=== PATIENT | male | born 1985 | race Two or more races ===

== ENCOUNTER 2021-04-09 20:03 | Emergency (ER) | payer MEDICAID, MEDICARE ==
[~2021-04-09] VITALS: Ht 172.7 cm; Wt 81.6 kg
[2021-04-09 20:04] VITALS: BP 168/97
[2021-04-09 21:47] LABS: Urine Bacteria NONE SEEN /hpf (None Seen); Urine Blood Negative /uL (Negative); Urine Hyaline Cast FEW /lpf (0 - 2); Urine Specific Gravity 1.022 (1.001-1.035); Urine WBC <1 /hpf (0 - 3)
[2021-04-09] MEDS ORDERED: SODIUM CHLORIDE 0.9% 2,000 ML IV ONE (23:00)
[2021-04-09] MEDS ORDERED: DIPHENOXYLATE W/ATROPINE 2.5 MG TAB PO ONE (23:00)
== END 2021-04-10 00:33 | disposition left against medical advice (07) ==
LOC: ER 20:04
DX: R19.7 Diarrhea, unspecified (principal); R10.32 Left lower quadrant pain
CPT/HCPCS: 81001

== ENCOUNTER 2021-09-28 06:31 | Emergency (ER) | payer MEDICAID, OTHER ==
[~2021-09-28] VITALS: Ht 167.6 cm; Wt 72.6 kg
[2021-09-28 06:57] VITALS: BP 149/84
[2021-09-28] MEDS ORDERED: cefTRIAXone SOD 1,000 MG VL IM ONE (07:00)
[2021-09-28] MEDS ORDERED: AZIT500T66 PO (07:00)
[2021-09-28] MEDS ORDERED: methylPREDNISolone SOD SUCC 125 MG/2 ML VL IM ONE (07:00)
[2021-09-28] MEDS ORDERED: LIDO2SOL23 MT (07:00)
[2021-09-28] MEDS ORDERED: LIDOCAINE 1% HCL (LOCAL ANESTH.) INJ 20ML MDV ID ONE (07:15)
== END 2021-09-28 07:29 | disposition home or self-care (01) ==
LOC: ER 06:31
DX: J03.90 Acute tonsillitis, unspecified (principal)
CPT/HCPCS: 96372; 99284; J0696; J2001; J2930

== ENCOUNTER 2022-12-14 06:26 | Emergency (ER) | payer MEDICAID ==
[~2022-12-14] VITALS: Ht 172.7 cm; Wt 78.8 kg
[~2022-12-14 06:26] MED LIST: AZIT500T66 PO; LIDO2SOL26 MT
[2022-12-14 07:17] VITALS: BP 141/94; PULSE 63; RESP 16; TEMP 97.8; O2SAT 95
[2022-12-14] MEDS ORDERED: METH4PAK PO (07:44)
[2022-12-14] MEDS ORDERED: TRIA0.1O TOP (07:44)
== END 2022-12-14 07:55 | disposition home or self-care (01) ==
LOC: ER 06:26
DX: L20.9 Atopic dermatitis, unspecified (principal); Z79.899 Other long term (current) drug therapy

== ENCOUNTER 2022-12-21 06:51 | Emergency (ER) | payer MEDICAID ==
[~2022-12-21] VITALS: Ht 172.7 cm; Wt 78.8 kg
[~2022-12-21 06:51] MED LIST changes: +METH4PAK PO; +TRIA0.1O TOP
[2022-12-21 07:10] VITALS: PULSE 65
[2022-12-21] MEDS ORDERED: EPINEPHrine HCL 1 MG/1 ML AMP SC ONE (07:45)
[2022-12-21] MEDS ORDERED: methylPREDNISolone SOD SUCC 40 MG/ML VL IM ONE (07:45)
[2022-12-21 07:50] VITALS: O2SAT 98
[2022-12-21] MEDS ORDERED: HYDR50CA PO (08:01)
[2022-12-21] MEDS ORDERED: PRED20TA2 PO (08:01)
[2022-12-21 08:13] VITALS: BP 127/80; RESP 18; O2SAT 95
== END 2022-12-21 08:14 | disposition home or self-care (01) ==
LOC: ER 06:51
DX: T78.40XA Allergy, unspecified, initial encounter (principal); X58.XXXA Exposure to other specified factors, initial encounter
CPT/HCPCS: 96372; 99284; J0171; J2920

== ENCOUNTER 2023-03-09 07:09 | Emergency (ER) | payer MEDICAID ==
[~2023-03-09] VITALS: Ht 172.7 cm; Wt 83.9 kg
[~2023-03-09 07:09] MED LIST changes: +HYDR50CA PO; +PRED20TA2 PO; +PROM1SOL4 PO
[2023-03-09 08:26] VITALS: BP 112/66; PULSE 77; RESP 16; TEMP 98.5; O2SAT 97
[2023-03-09] MEDS ORDERED: DEXT60TA4 PO (09:05)
== END 2023-03-09 09:23 | disposition home or self-care (01) ==
LOC: ER 07:09 → MERGE 07:09 → ER 09:23
DX: N39.0 Urinary tract infection, site not specified (principal); J02.9 Acute pharyngitis, unspecified

== ENCOUNTER 2025-01-08 06:27 | Emergency (ER) | payer MEDICAID ==
[~2025-01-08] VITALS: Ht 167.6 cm; Wt 80.4 kg
[~2025-01-08 06:27] MED LIST changes: +DEXT60TA4 PO
--- NOTE | 2025-01-08 07:36 | ED.PDOC ---
Back pain HPI HPI Comments This is a 39 year old male presenting to the ED with chief complaint of left lower back pain. Patient reports that he suddenly began to experience left lower back pain that worsens with movement and stretching. Patient relays that he has had similar pain in the past about a year ago, but it self resolved with Tylenol. Patient states at a recent PCP visit, he was told he had sciatica. Patient denies any numbness, weakness, tingling, fall, or injury at this time. Chief Complaint: Flank Pain Time Seen by MD: 07:34 Primary Care Provider: VALARIE Reviewed Notes: Nurses Notes, Medications, Allergies Allergies: Coded Allergies: NO KNOWN ALLERGIES (Unverified , 09/28/21) Home Meds Active Scripts Dextromethorphan-Guaifenesin (Mucinex Dm Maximum Streng) 1 Tab Tab, 1 TAB PO BID PRN for 10 Days, #20 TAB 0 Refills Prov:MITCH VYAS NP 03/09/23 Promethazine-Dm (Promethazine Dm 6.25-15 mg/5Ml) 1 [place], 5 ML PO TID, #150 ML Prov:CAMI CANO 01/17/23 Azithromycin (Azithromycin) 500 Mg Tab, 1 TAB PO DAILY, #5 TAB Prov:CAMI CANO 01/17/23 Prednisone (Prednisone) 20 Mg Tab, 60 MG PO DAILY, #21 MG Prov:CAMI CANO 12/21/22 Hydroxyzine Pamoate (Vistaril) 50 Mg Cap, 1 CAP PO BID, #30 CAP Prov:CAMI CANO 12/21/22 Methylprednisolone (Medrol Dosepak) 4 Mg Zohaib, 4 MG PO UD, #21 TAB UAD Prov:CAMI CANO 12/14/22 Triamcinolone Acetonide (Triamcinolone Acetonide) 0.1 % Oin, 1 APPLIC TOP BID, #60 GRAMS Prov:CAMI CANO 12/14/22 Lidocaine HCl (Mouth-Throat) (Lidocaine HCl Viscous) 2 % [place], 2 % MT TID, #100 ML Prov:CAMI CANO 09/28/21 Azithromycin (Azithromycin) 500 Mg Tab, 500 MG PO DAILY for 5 Days, #5 TAB Prov:CAMI CANO 09/28/21 Information Source: Patient Mode of Arrival: Ambulatory Timing: Days Duration: Since onset Location of Back pain: (L) Lower back Severity: Moderate Prehospital treatment: None Quality: Sharp Onset: Spontaneous History of: None Modifying Factors: Nothing Past Medical History Past Medical History (Other): Sciatica Surgical History: Denies all surgeries Family History Family History: Reviewed,noncontributory to illness Social History Smoker: Non-Smoker Alcohol: Denies ETOH Use Drugs: Denies Drug Use Lives In: Home Constitutional: denies: chills, diaphoresis, fatigue, fever, malaise, sweats, weakness, others EENTM: denies: blurred vision, double vision, ear bleeding, ear discharge, ear drainage, ear pain, ear ringing, eye pain, eye redness, hearing loss, mouth pain, mouth swelling, nasal discharge, nose bleeding, nose congestion, nose pain, photophobia, tearing, throat pain, throat swelling, voice changes, others Respiratory: denies: cough, hemoptysis, orthopnea, SOB at rest, shortness of breath, SOB with excertion, stridor, wheezing, others Cardiovascular: denies: chest pain, dizzy spells, diaphoresis, Dyspnea on exertion, edema, irregular heart beat, left arm pain, lightheadedness, palpitations, PND, syncope, others Gastrointestinal: denies: abdomen distended, abdominal pain, blood streaked bowels, constipated, diarrhea, dysphagia, difficulty swallowing, hematemesis, melena, nausea, poor appetite, poor fluid intake, rectal bleeding, rectal pain, vomiting, others Genitourinary: denies: burning, dysuria, flank pain, frequency, hematuria, incontinence, penile discharge, penile sore, pain, testicle pain, testicle swelling, urgency, others Neurological: denies: dizziness, fainting, headache, left sided numbness, left sided weakness, numbness, paresthesia, pre-existing deficit, right sided numbness, right sided weakness, seizure, speech problems, tingling, tremors, weakness, others Musculoskeletal: reports: back pain; denies: gout, joint pain, joint swelling, muscle pain, muscle stiffness, neck pain, others Integumetry: denies: bruises, change in color, change in hair/nails, dryness, laceration, lesions, lumps, rash, wounds, others Allergic/Immunocompromised: denies: Difficulty Healing, Frequent Infections, Hives, Itching, others Hematologic/Lymphatic: denies: anemia, blood clots, easy bleeding, easy bruising, swollen glands, others Endocrine: denies: excessive hunger, excessive sweating, excessive thirst, excessive urination, flushing, intolerance to cold, intolerance to heat, unexplained weight gain, unexplained weight loss, others Psychiatric: denies: anxiety, bipolar disorder, depression, hopeless, panic disorder, schizophrenia, sleepless, suicidal, others All Other Systems: Reviewed and Negative Physical Exam General Appearance: Moderate Distress, Normal HEENT: Normal ENT Inspection, PERRL/EOMI, Pharynx Normal, TMs Normal Neck: Full Range of Motion, Non-Tender, Normal, Normal Inspection Respiratory: Chest Non-Tender, Lungs Clear, No Accessory Muscle Use, No Respiratory Distress, Normal Breath Sounds Cardiovascular: No Edema, No JVD, No Murmur, No Gallop, Normal Peripheral Pulses, Regular Rate/Rhythm Breast Exam: Deferred Gastrointestinal: No Organomegaly, Non Tender, No Pulsatile Mass, Normal Bowel Sounds, Soft Genitalia: Deferred Pelvic: Deferred Rectal: Deferred Extremities: No calf tenderness, Normal capillary refill, Normal inspection, Normal range of motion, Non-tender, No pedal edema Musculoskeletal : Location: Left Extremity Location: Back Apperance: Limited ROM, Tenderness: Mild, Tenderness: Moderate, Other (With a straight leg irrigation elevation at 45 very painful) Neurologic: Alert, pediatrician active practice II-XII nml as Tested, No Motor Deficits, Normal Affect, Normal Mood, No Sensory Deficits Cerebellar Function: Normal Reflexes: Normal Skin: Dry, Normal Color, Warm Peripheral Pulses: 1+ carotid (R), 1+ carotid (L) Lymphatic: No Adenopathy Was a procedure done? Was a procedure done?: No Back Pain Differential Dx Differential Diagnosis: Musculoskeletal Pain X-Ray, Labs, Meds, VS Vital Signs Date Time Temp Pulse Resp B/P (MAP) Pulse Ox O2 Delivery O2 Flow Rate FiO2 01/08/25 07:46 97.6 60 18 116/82 (93) 97 97.6 01/08/25 06:29 97.7 64 16 127/87 97 97.7 Time of 1ST Reevaluation: 07:45 Reevaluation 1ST: Unchanged Time of 2ND Reevaluation: 07:49 Reevaluation 2ND: Improved Consultation: PCP, Surgery Patient Education/Counseling: Diagnosis, Treatment, Prognosis, Need For Follow Up Family Education/Counseling: Diagnosis, Treatment, Prognosis, Need For Follow Up, No Family Present SEPSIS Sepsis Screen Date sepsis recognized/suspect: Jan 08, 2025 Time Sepsis recognized/suspect: 0634 Recent Procedure: No On Antibiotic Therapy: No Respiratory Rate >20: No Heart Rate >90: No Temp<36 C (96.8 F) or >38.3 C: No SBP <90 or MAP <65 mmHG: No New Acute Mental Status Change: No Is the patient on CPAP, BIPAP,: No Vital Signs Date Time Temp Pulse Resp B/P (MAP) Pulse Ox O2 Delivery O2 Flow Rate FiO2 01/08/25 07:46 97.6 60 18 116/82 (93) 97 97.6 01/08/25 06:29 97.7 64 16 127/87 97 97.7 Departure 1 Departure Time of Disposition: 07:49 Impression: Primary Impression: Osteoarthritis of spine with radiculopathy, lumbar region Disposition: 01 HOME / SELF CARE / HOMELESS Condition: Fair Additional Instructions: Heat and follow up with your PCP e-Prescriptions Hydrocodone-Acetaminophen (Hydrocodone Bitartrate/AC 5-325 mg) 1 Tab Tab 1 TAB PO BID for 5 Days, #10 TAB Prov: JOSE GIBBS MD 01/08/25 Cyclobenzaprine HCl (Cyclobenzaprine Hydrochlo) 10 Mg Tab 10 MG PO TID for 10 Days, #30 TAB Prov: JOSE GIBBS MD 01/08/25 Dexamethasone (Decadron) 4 Mg Tb 4 MG PO BID for 5 Days, #10 TAB Prov: JOSE GIBBS MD 01/08/25 Discharged With: Self Critical Care Note Critical Care Time?: No Stability Stability form required: No Heart Score Heart Score: Heart Score Response (Comments) Value History N/A 0 EKG N/A 0 Age <45 0 Risk Factors No known risk factors 0 Troponin N/A 0 Total 0 I personally scribed for JOSE GIBBS MD ([email or web address]) on 01/08/25 at 07:36. Electronically submitted by Alejandro Trent ([email or web address]). JOSE GIBBS MD Jan 08, 2025 07:36
[2025-01-08 07:46] VITALS: BP 116/82; PULSE 60; RESP 18; TEMP 97.6; O2SAT 97
[2025-01-08] MEDS: KETOROLAC TROMETH 60MG/2ML VIAL IM ONE (07:49)
[2025-01-08] MEDS ORDERED: DEX4T PO (07:53)
[2025-01-08] MEDS ORDERED: HYDR-4902 PO (07:53)
[2025-01-08] MEDS ORDERED: CYCL-611 PO (07:53)
== END 2025-01-08 08:21 | disposition home or self-care (01) ==
LOC: ER 06:27
DX: M47.26 Other spondylosis with radiculopathy, lumbar region (principal); Z79.899 Other long term (current) drug therapy
CPT/HCPCS: 96372; 99283; J1885

== ENCOUNTER 2025-02-26 05:55 | Emergency (ER) | payer MEDICAID ==
[~2025-02-26] VITALS: Ht 167.6 cm; Wt 82.7 kg
[~2025-02-26 05:55] MED LIST changes: +CYCL-611 PO; +DEX4T PO; +HYDR-4902 PO
--- NOTE | 2025-02-26 06:36 | ED.PDOC ---
Musculoskeletal HPI Comments A 39 YEAR OLD MALE PRESENTS TO THE ED WITH COMPLAINT OF LEFT KNEE PAIN. THE PATIENT SUSTAINED A MECHANICAL FALL YESTERDAY, SLIPPING AND LANDING DIRECTLY ON THE KNEE. ASSOCIATED SYMPTOMS INCLUDE SWELLING. PAIN IS AGGRAVATED BY EXERTION, THOUGH THE PATIENT CAN BEAR SOME WEIGHT. PATIENT DENIES ANY HEAD INJURIES, LIGHTHEADEDNESS, FEVER, CHILLS, SHORTNESS OF BREATH, CHEST PAIN, ABDOMINAL PAIN, NAUSEA, VOMITING, HEADACHE, OR OTHER COMPLAINTS. NO OTHER SYMPTOMS OR MODIFYING FACTORS AT THIS TIME. PATIENT IS ALERT, ORIENTED X 4, AND HAS STEADY GAIT. Chief Complaint: Lower Extremity Time Seen by MD: 06:29 Primary Care Provider: VALARIE Reviewed Notes: Nurses Notes, Medications, Allergies Allergies: Coded Allergies: NO KNOWN ALLERGIES (Unverified , 09/28/21) Home Meds Active Scripts Ibuprofen (Ibuprofen) 800 Mg Tab, 1 TAB PO TID, #30 TAB Prov:CAMI CANO 02/26/25 Hydrocodone-Acetaminophen (Hydrocodone Bitartrate/AC 5-325 mg) 1 Tab Tab, 1 TAB PO BID for 5 Days, #10 TAB Prov:JOSE GIBBS MD 01/08/25 Cyclobenzaprine HCl (Cyclobenzaprine Hydrochlo) 10 Mg Tab, 10 MG PO TID for 10 Days, #30 TAB Prov:JOSE GIBBS MD 01/08/25 Dexamethasone (Decadron) 4 Mg Tb, 4 MG PO BID for 5 Days, #10 TAB Prov:JOSE GIBBS MD 01/08/25 Dextromethorphan-Guaifenesin (Mucinex Dm Maximum Streng) 1 Tab Tab, 1 TAB PO BID PRN for 10 Days, #20 TAB 0 Refills Prov:MITCH VYAS NP 03/09/23 Promethazine-Dm (Promethazine Dm 6.25-15 mg/5Ml) 1 [place], 5 ML PO TID, #150 ML Prov:CAMI CANO 01/17/23 Azithromycin (Azithromycin) 500 Mg Tab, 1 TAB PO DAILY, #5 TAB Prov:CAMI CANO 01/17/23 Prednisone (Prednisone) 20 Mg Tab, 60 MG PO DAILY, #21 MG Prov:CAMI CANO 12/21/22 Hydroxyzine Pamoate (Vistaril) 50 Mg Cap, 1 CAP PO BID, #30 CAP Prov:RACHAELKATYINNA HERNANDEZ 12/21/22 Methylprednisolone (Medrol Dosepak) 4 Mg Zohaib, 4 MG PO UD, #21 TAB UAD Prov:RACHAELCAMI HERNANDEZ 12/14/22 Triamcinolone Acetonide (Triamcinolone Acetonide) 0.1 % Oin, 1 APPLIC TOP BID, #60 GRAMS Prov:CAMI CANO 12/14/22 Lidocaine HCl (Mouth-Throat) (Lidocaine HCl Viscous) 2 % [place], 2 % MT TID, #100 ML Prov:CAMI CANO 09/28/21 Azithromycin (Azithromycin) 500 Mg Tab, 500 MG PO DAILY for 5 Days, #5 TAB Prov:CAMI CANO 09/28/21 Information Source: Patient Mode of Arrival: Ambulatory Location: Left Extremity Location: Knee Timing: Days (1) Prehospital treatment: None Severity: Moderate Able to Move Extremity: Yes Bear Weight: Limited Pain: Moderate Hand Dominance: Right Mechanism: None Circumstances: Fall Onset of Symptoms: After Trauma, During Exercise Symptoms: Swelling, Pain DVT Risk Factors: NONE Last Tetanus: UTD Associated signs and symptoms: Knee pain Past Medical History PAST MEDICAL HISTORY: Denies Surgical History: Denies all surgeries Family History Family History: Reviewed,noncontributory to illness Social History Smoker: Non-Smoker Alcohol: Denies ETOH Use Drugs: Denies Drug Use Lives In: Home Constitutional: denies: chills, diaphoresis, fatigue, fever, malaise, sweats, weakness, others EENTM: denies: blurred vision, double vision, ear bleeding, ear discharge, ear drainage, ear pain, ear ringing, eye pain, eye redness, hearing loss, mouth toy n, mouth swelling, nasal discharge, nose bleeding, nose congestion, nose pain, photophobia, tearing, throat pain, throat swelling, voice changes, others Respiratory: denies: cough, hemoptysis, orthopnea, SOB at rest, shortness of breath, SOB with excertion, stridor, wheezing, others Cardiovascular: denies: chest pain, dizzy spells, diaphoresis, Dyspnea on exertion, edema, irregular heart beat, left arm pain, lightheadedness, palpitations, PND, syncope, others Gastrointestinal: denies: abdomen distended, abdominal pain, blood streaked bowels, constipated, diarrhea, dysphagia, difficulty swallowing, hematemesis, melena, nausea, poor appetite, poor fluid intake, rectal bleeding, rectal pain, vomiting, others Genitourinary: denies: burning, dysuria, flank pain, frequency, hematuria, incontinence, penile discharge, penile sore, pain, testicle pain, testicle swelling, urgency, others Neurological: denies: dizziness, fainting, headache, left sided numbness, left sided weakness, numbness, paresthesia, pre-existing deficit, right sided numbness, right sided weakness, seizure, speech problems, tingling, tremors, weakness, others Musculoskeletal: reports: joint pain, joint swelling, others (LEFT KNEE PAIN ); denies: back pain, gout, muscle pain, muscle stiffness, neck pain Integumetry: denies: bruises, change in color, change in hair/nails, dryness, laceration, lesions, lumps, rash, wounds, others Allergic/Immunocompromised: denies: Difficulty Healing, Frequent Infections, Hives, Itching, others Hematologic/Lymphatic: denies: anemia, blood clots, easy bleeding, easy bruising, swollen glands, others Endocrine: denies: excessive hunger, excessive sweating, excessive thirst, excessive urination, flushing, intolerance to cold, intolerance to heat, un explained weight gain, unexplained weight loss, others Psychiatric: denies: anxiety, bipolar disorder, depression, hopeless, panic disorder, schizophrenia, sleepless, suicidal, others All Other Systems: Reviewed and Negative Physical Exam General Appearance: No Apparent Distress, Normal HEENT: Normal ENT Inspection, PERRL/EOMI, Pharynx Normal, TMs Normal Neck: Full Range of Motion, Non-Tender, Normal, Normal Inspection Respiratory: Chest Non-Tender, Lungs Clear, No Accessory Muscle Use, No R espiratory Distress, Normal Breath Sounds Cardiovascular: No Edema, No JVD, No Murmur, No Gallop, Normal Peripheral Pulses, Regular Rate/Rhythm Breast Exam: Deferred Gastrointestinal: No Organomegaly, Non Tender, No Pulsatile Mass, Normal Bowel Sounds, Soft Genitalia: Deferred Pelvic: Deferred Rectal: Deferred Extremities: Decreased range of motion, No calf tenderness, Normal capillary refill, No pedal edema, Swelling (MILD SWELLING AND TENDERNESS ON LEFT KNEE. ), Tender (AND MILD SWELLING ON LEFT KNEE, NO BONY TENDERNESS, SWELLING AND DEFORMITY. ) Musculoskeletal : Apperance: Normal Neurologic: Alert, boss dyer II-XII nml as Tested, No Motor Deficits, Normal Affect, Normal Mood, No Sensory Deficits Cerebellar Function: Normal Reflexes: Normal Skin: Dry, Normal Color, Warm Peripheral Pulses: 2+ carotid (R), 2+ carotid (L), 2+ dorsalis pedis (R), 2+ dorsalis pedis (L) Lymphatic: No Adenopathy Was a procedure done? Was a procedure done?: No Differential Diagnosis EXT Differential Diagnosis: Sprain, Dislocation, Contusion, Strain, Arthritis, Bursitis X-Ray, Labs, Meds, VS Vital Signs Date Time Temp Pulse Resp B/P (MAP) Pulse Ox O2 Delivery O2 Flow Rate FiO2 02/26/25 06:43 97.9 67 18 131/85 (100) 99 97.9 02/26/25 06:43 67 18 99 Room Air 02/26/25 05:56 97.9 18 131/85 99 97.9 Current Medications Medications (Trade) Dose Ordered Sig/Siva Route Start Time Stop Time Status Last Admin Ketorolac Tromethamine (Toradol Injection) 60 mg ONCE ONCE IM 02/26/25 06:45 02/26/25 06:46 DC 02/26/25 06:43 PATIENT: PADMINI LEALCT: [id number]: [id number] : 1985 LOC: ER ROOM / BED: / AGE / SEX: 39 / M ADM STATUS: [facility] ER SERVICE 5 ORDERING PHYSICIAN: CAMI CANO PROCEDURE(s): LKNE3 - L KNEE 3V XRAY REASON: fall ORDER NUMBER(s): [id number], ACCESSION NUMBER(s): [id number] Indication: fall Technique: XY L KNEE 3V XRAYXY Comparison: None FINDINGS/IMPRESSION: No radiographic evidence for acute fracture or dislocation. Bipartite patella. Small suprapatellar effusion. ATED BY: DEREJE IBRAHIM MD DICTATED DATE/TIME: 02/26/25732 SIGNED BY: DEREJE IBRAHIM MD SIGNED DATE/TIME: 02/26/25 0733 CC: X-Ray, Labs, Meds, VS Comment EXTERNAL MEDICAL RECORDS REVIEWED: [NONE] INDEPENDENT HISTORIANS: [NONE] SOCIAL DETERMINANTS OF HEALTH: [NONE] LABS ORDERED: NONE REVIEWED AND INTERPRETED RESULTS: NONE IMAGING ORDERED: LEFT KNEE X RAY: NO FX AND DISLOCATION, READ BY ME, PENDING RADIOLOGIST READING. TREATMENTS ORDERED: TORADOL 60MG AND CRUTCHES PROCEDURES PERFORMED: NONE CRITICAL CARE TIME: NONE I HAVE DISCUSSED THE PATIENT WITH THE ATTENDING PHYSICIAN, DR. ERWIN, HE AGREES WITH THE PATIENT'S PLAN OF CARE AND DISPOSITION. BASED ON HISTORY OF PRESENT ILLNESS, AND PHYSICAL EXAM, PATIENT WILL BE DISCHARGED HOME. DISCUSSED PLAN FOR DISCHARGE HOME WITH RX [MOTRIN 800MG]. MEDICATION WARNINGS GIVEN. SHARED DECISION MAKING: DISCUSSED WITH PATIENT THAT THEIR WORKUP WAS NORMAL. PATIENT INSTRUCTED TO FOLLOW UP WITH PRIMARY CARE PROVIDER IN 1-2 DAYS FOR RE- EVALUATION OF SYMPTOMS. PATIENT VERBALIZES UNDERSTANDING TO RETURN TO ED FOR NEW OR WORSENING SYMPTOMS OR IF FOLLOW UP WITH PCP CANNOT BE OBTAINED. PATIENT FEELS COMFORTABLE GOING HOME AT THIS TIME. ALL QUESTIONS ADDRESSED AT TIME OF DISCHARGE. Images Reviewed?: Images reviewed and evaluated by me Time of 1ST Reevaluation: 07:20 Reevaluation 1ST: Improved Patient Education/Counseling: Diagnosis, Treatment, Need For Follow Up Family Education/Counseling: Diagnosis, Treatment, No Family Present Medical Screening: No EMC Exist At This Time Departure 1 Departure Time of Disposition: 07:30 Impression: Primary Impression: Sprain of left knee Qualified Codes: S83.92XA - Sprain of unspecified site of left knee, initial encounter Disposition: HOME / SELF CARE / HOMELESS Condition: Stable Additional Instructions: FOLLOW-UP WITH PCP IN 1 TO 2 DAYS. TAKE MEDICATIONS PRESCRIBED. RETURN TO ED FOR ANY NEW OR WORSENING SYMPTOMS. e-Prescriptions Ibuprofen (Ibuprofen) 800 Mg Tab 1 TAB PO TID, #30 TAB Prov: CAMI CANO 02/26/25 Discharged With: Self Critical Care Note Critical Care Time?: No Stability Stability form required: No I personally scribed for CAMI CANO ([email or web address]) on 02/26/25 at 06:36. Electronically submitted by Myrna Santos ([facility]). CAMI CANO Feb 26, 2025 06:36
[2025-02-26 06:43] VITALS: BP 131/85; PULSE 67; RESP 18; TEMP 97.9; O2SAT 99
[2025-02-26] MEDS: KETOROLAC TROMETH 60MG/2ML VIAL IM ONE (06:43)
[2025-02-26] MEDS ORDERED: IBUP-1456 PO (07:02)
--- NOTE | 2025-02-26 07:32 | DVH ---
Indication: fall Technique: XY L KNEE 3V XRAYXY Comparison: None FINDINGS/IMPRESSION: No radiographic evidence for acute fracture or dislocation. Bipartite patella. Small suprapatellar e ffusion.
== END 2025-02-26 07:15 | disposition home or self-care (01) ==
LOC: ER 05:55
DX: S83.92XA Sprain of unspecified site of left knee, initial encounter (principal); W01.0XXA Fall on same level from slipping, tripping and stumbling without subsequent striking against object, initial encounter; Y93.89 Activity, other specified; Y92.89 Other specified places as the place of occurrence of the external cause; Y99.8 Other external cause status
CPT/HCPCS: 73562; 96372; 99283; J1885